=== PATIENT | male | born 1995 | race Caucasian/White ===

== ENCOUNTER 2017-11-05 14:21 | Emergency (ER) | payer SELFPAY ==
[2017-11-05] MEDS ORDERED: OXYMETAZOLINE HCL 0.05% NASAL SPRAY 15 ML BOTTLE NASL ONE (15:06)
[2017-11-05] MEDS ORDERED: OXYMETAZOLINE HCL 0.05% NASAL SPRAY 15 ML BOTTLE ONE (15:09)
--- NOTE | 2017-11-05 16:11 | ER Document Report ---
ED ENT - General Chief Complaint: Nose Pain Stated Complaint: HEADACHE, NOSE BLEEDS Time Seen by Provider: 11/05/17 14:33 Mode of Arrival: Ambulatory Information source: Patient Notes: 22-year-old male presents to ED for complaint of pain and mass to the right nare. He believes this mass is causing nosebleeds and migraines. He states it has been present for about 10 days. He states that he is knocked the scab off of a couple times and had severe nosebleeds the last up to an hour. He states he has had this mass in the past and it seemed like he got better but it has come back. He is alert oriented, respirations regular and unlabored, speaks in full sentences, walks with a even steady gait. TRAVEL OUTSIDE OF THE [place] IN LAST 30 DAYS: No - HPI Patient complains to provider of: Nose problem Onset: Other - States that he has had it once before and this time it is lasted 10 days Onset/Duration: Intermittent Quality of pain: Sharp Severity: Moderate Pain Level: 3 Location of pain: Nose Associated symptoms: Headache, Other - Gross to the right near that when the scab is removed bleeds profusely for periods of time. He states this mass is also causing a headache Similar symptoms previously: Yes Recently seen / treated by doctor: No - Related Data Allergies/Adverse Reactions: No Known Allergies Allergy (Verified 11/05/17 14:23) Past Medical History - General Information source: Patient - Social History Smoking Status: Current Every Day Smoker Cigarette use (# per day): Yes - 10 cigarettes a day Chew tobacco use (# tins/day): No Smoking Education Provided: Yes - 4 minutes Frequency of alcohol use: None Drug Abuse: Marijuana - Every other day Occupation: [employer] Lives with: Grandparent(s) Family History: Reviewed & Not Pertinent Patient has suicidal ideation: No Patient has homicidal ideation: No - Past Medical History Cardiac Medical History: Reports: None Pulmonary Medical History: Reports: None EENT Medical History: Reports: None Neurological Medical History: Reports: None Endocrine Medical History: Reports: None Renal/ Medical History: Reports: None Malignancy Medical History: Reports None GI Medical History: Reports: None Musculoskeltal Medical History: Reports None Skin Medical History: Reports None Psychiatric Medical History: Reports: Hx Attention Deficit Hyperactivity Disorder Traumatic Medical History: Reports: None Infectious Medical History: Reports: None Surgical Hx: Negative Past Surgical History: Reports: None Review of Systems - Review of Systems Constitutional: No symptoms reported EENT: Nose pain - States he has had a growth in his right nare he states at times it will bleed for up to an hour before he can get it to stop. He states he had this growth once before and it went away but it came back about 10 days ago. Cardiovascular: No symptoms reported Respiratory: No symptoms reported Gastrointestinal: No symptoms reported Genitourinary: No symptoms reported Male Genitourinary: No symptoms reported Musculoskeletal: No symptoms reported Skin: No symptoms reported Hematologic/Lymphatic: No symptoms reported Neurological/Psychological: No symptoms reported Physical Exam - Vital signs Vitals: Temp Pulse Resp BP Pulse Ox 98.7 F 69 16 125/72 99 11/05/17 14:28 11/05/17 14:28 11/05/17 14:28 11/05/17 14:28 11/05/17 14:28 Interpretation: Normal - General General appearance: Appears well, Alert - HEENT Head: Normocephalic, Atraumatic Eyes: Normal Pupils: PERRL Ears: Normal External canal: Normal Tympanic membrane: Normal Sinus: Normal Nasal: Other - Questionable mass, gross, ulceration to the right nare with a large scab with scab that when the enlarged scab was removed nose did bleed profusely. Mouth/Lips: Normal Mucous membranes: Normal Pharynx: Normal Neck: Normal - Respiratory Respiratory status: No respiratory distress Chest status: Nontender Breath sounds: Normal Chest palpation: Normal - Cardiovascular Rhythm: Regular Heart sounds: Normal auscultation Murmur: No - Abdominal Inspection: Normal Distension: No distension Bowel sounds: Normal Tenderness: Nontender Organomegaly: No organomegaly - Back Back: Normal, Nontender - Extremities General upper extremity: Normal inspection, Nontender, Normal color, Normal ROM , Normal temperature General lower extremity: Normal inspection, Nontender, Normal color, Normal ROM , Normal temperature, Normal weight bearing. No: Sherif's sign - Neurological Neuro grossly intact: Yes Cognition: Normal Orientation: AAOx4 Samson Coma Scale Eye Opening: Spontaneous Samson Coma Scale Verbal: Oriented [place] Coma Scale Motor: Obeys Commands Samson Coma Scale Total: 15 Speech: Normal Motor strength normal: LUE, RUE, LLE, RLE Sensory: Normal - Psychological Associated symptoms: Normal affect, Normal mood - Skin Skin Temperature: Warm Skin Moisture: Dry Skin Color: Normal Course - Re-evaluation Re-evalutation: 11/05/17 21:39 With the assistance of Dr. Blood the nosebleed was stopped with Afrin and direct pressure. Patient was discharged home with the Afrin and instructions on nosebleed and to follow-up with ENT tomorrow. - Vital Signs Vital signs: Temp Pulse Resp BP Pulse Ox 98 F 77 16 116/65 100 11/05/17 16:40 11/05/17 16:40 11/05/17 16:40 11/05/17 16:40 11/05/17 16:40 Discharge - Discharge Clinical Impression: Bleeding from the nose Condition: Stable Disposition: HOME, SELF-CARE Instructions: Nosebleed Instructions ([facility]) Additional Instructions: You were seen today for in abnormality in your right nare with a scab over the abnormality. The scab was removed the nose did start bleeding. He was treated with Afrin nasal spray and direct pressure to the nose. The nose did stop bleeding and you have been given instructions concerning a nosebleed. You will need to follow-up with ears nose and throat in 4-5 days to have the abnormality examined once the open area heals some. Acetaminophen Acetaminophen may be taken for pain relief or fever control. It's much safer than aspirin, offering a wider range of "safe" dosages. It is safe during . Some brand names are Tylenol, Panadol, Datril, Anacin 3, Tempra, and Liquiprin. Acetaminophen can be repeated every four hours. The following are maximum recommended dosages: WEIGHT Dose Drops Elixir Chewable( 80mg) (LBS.) drprs=droppers tsp=teaspoon 6 40 mg .4 ml (1/2) 6-11 80 mg .8 ml (full) 1/2 tsp 1 tab 12-16 120 mg 1 1/2 drprs 3/4 tsp 1 1/2 tabs 17-23 160 mg 2 drprs 1 tsp 2 tabs 24-30 240 mg 3 drprs 1 1/2 tsp 3 tabs 30-35 320 mg 2 tsp 4 tabs 36-41 360 mg 2 1/4 tsp 4 1 /2 tabs 42-47 400 mg 2 1/2 tsp 5 tabs 48-53 480 mg 3 tsp 6 tabs 54-59 520 mg 3 1/4 tsp 6 1 /2 tabs 60-64 560 mg 3 1/2 tsp 7 tabs 65-70 600 mg 3 3/4 tsp 7 1 /2 tabs 71-76 640 mg 4 tsp 8 tabs 77-82 720 mg 4 1/2 tsp 9 tabs 83-88 800 mg 5 tsp 10 tabs >89 pounds or adults 650 mg to 900 mg Acetaminophen can be repeated every four hours. Maximum daily dose not to exceed 4000 mg. These maximum recommended dosages are slightly higher than the dosages written on the product container, but these dosages are very safe and well below the toxic dosage for acetaminophen. FOLLOW-UP CARE: If you have been referred to a physician for follow-up care, call the physician s office for an appointment as you were instructed or within the next two days. If you experience worsening or a significant change in your symptoms, notify the physician immediately or return to the Emergency Department at any time for re-evaluation. Forms: Smoking Cessation Education, Return to Work Referrals: FRANK ORTIZ DO [ASSOCIATE] - Follow up as needed
[2017-11-05 16:41] VITALS: BP 116/65
== END 2017-11-05 16:40 | disposition home or self-care (01) ==
LOC: ER 14:21
DX: R04.0 Epistaxis (principal); J34.89 Other specified disorders of nose and nasal sinuses; R51 Headache; F17.210 Nicotine dependence, cigarettes, uncomplicated
CPT/HCPCS: 99283; 99406